=== PATIENT | male | born 1980 | race Two or more races ===

== ENCOUNTER 2025-08-08 19:42 | Inpatient (IN) | payer OTHER ==
[~2025-08-08] VITALS: Ht 180.3 cm; Wt 199.1 kg
[~2025-08-08 19:42] MED LIST: AMLO10TA80 PO; LOSA-412 PO
[2025-08-08] MEDS: SODIUM CHLORIDE 0.9% (SEPSIS BOLUS) IV ONE (21:09)
[2025-08-08] MEDS: PIPERACILLIN/TAZO 3.375G/50ML 50 ML IV ONE (21:34)
[2025-08-08 21:37] LABS: UREA NITROGEN BLOOD 41 mg/dL (9-23)
[2025-08-08 21:38] LABS: PROTEIN TOTAL 7.4 g/dL (6.0-8.3)
[2025-08-08 21:39] LABS: ASPARTATE AMINOTRANSFERASE 99 IU/L (<34); BILIRUBIN DIRECT 0.4 mg/dL (<=3.0); BILIRUBIN TOTAL 0.9 mg/dL (0.1-1.0)
[2025-08-08 22:06] LABS: C REACTIVE PROTEIN HIGH SENS > 200.00 mg/l (<1.00); CREATININE 2.1 mg/dL (0.6-1.3)
[2025-08-08 22:13] LABS: TROPONIN I HIGH SENSITIVITY 91 ng/L (3.0-53)
[2025-08-08 22:15] LABS: HEMATOCRIT. 35.1 % (42.0-52.0); HEMOGLOBIN. 11.1 g/dL (14.0-18.0); MEAN PLATELET VOLUME 9.4 fl (7.4-10.4); PLATELET 204 x1000/uL (130-400); RED BLOOD CELL COUNT 4.51 mill/uL (4.7-6.1); RED CELL DISTRIBUTION WIDTH 17.8 % (11.6-14.6)
[2025-08-08 22:30] LABS: INR 1.5
[2025-08-08] MEDS: VANCOMYCIN 1G PREMIX 200 ML IV ONE (22:31)
[2025-08-08 22:37] LABS: BAND% 2.0 % (1.0-6.0); LYMPHOCYTES % MANUAL 15.0 % (20.0-50.0); MONOCYTES % MANUAL 8.0 % (2.0-8.0); NEUTROPHILS % MANUAL 75.0 % (45.0-75.0); PLATELET ESTIMATE NORMAL
[2025-08-08] MEDS: ONDANSETRON HCL 4MG/2ML INJ IV ONE (22:52)
[2025-08-08] MEDS: MORPHINE SULFATE 4 MG/ML INJ (FOR IV/IM USE) IV ONE (22:52)
[2025-08-08 23:32] LABS: CLARITY URINE TURBID (CLEAR); COLOR URINE DARK YELLOW (YELLOW); GLUCOSE URINE NEGATIVE (NEGATIVE); KETONES URINE NEGATIVE (NEGATIVE); LEUKOCYTE ESTERASE URINE 1+ (NEGATIVE); NITRITE URINE NEGATIVE (NEGATIVE); OCCULT BLOOD URINE 3+ (NEGATIVE); PH URINE 5.5 (4.5-8.0); PROTEIN URINE 3+ (NEGATIVE); SPECIFIC GRAVITY URINE 1.022 (1.005-1.030); UROBILINOGEN URINE 1.0 E.U./dL (0.2-1.0)
[2025-08-09] VITALS (11 sets, daily range): BP systolic 112–151; BP diastolic 59–87; PULSE 71–115; RESP 18–28; TEMP 36.3–36.9; O2SAT 90–100
[2025-08-09] MEDS ORDERED: ZOLPIDEM TARTRATE 5MG TABLET PO PRN
[2025-08-09] MEDS ORDERED: ONDANSETRON HCL 4MG/2ML INJ IV PRN
[2025-08-09 00:23] LABS: SQUAMOUS EPITHELIAL CELL URINE FEW /lpf (RARE/1+)
[2025-08-09 00:26] LABS: BACTERIA URINE 1+; RBC URINE 25-50 /hpf (0-2); WBC URINE 0-2 /hpf (0-2)
[2025-08-09] MEDS: ACETAMINOPHEN 325MG TABLET PO PRN (00:30)
[2025-08-09] MEDS: SODIUM CHLORIDE 0.9% 1,000 ML IV SCH (01:38)
[2025-08-09] MEDS: VANCOMYCIN 1G PREMIX 200 ML IV NR (01:39)
[2025-08-09] MEDS: PIPERACILLIN/TAZO 3.375G/50ML 50 ML IV SCH (06:02)
[2025-08-09] MEDS: MORPHINE SULFATE 2 MG/ML INJ (NOT FOR IM USE) IV PRN (06:29)
[2025-08-09 10:26] LABS: HEMATOCRIT. 35.8 % (42.0-52.0); HEMOGLOBIN. 11.6 g/dL (14.0-18.0); MEAN PLATELET VOLUME 9.3 fl (7.4-10.4); PLATELET 165 x1000/uL (130-400); RED BLOOD CELL COUNT 4.58 mill/uL (4.7-6.1); RED CELL DISTRIBUTION WIDTH 18.2 % (11.6-14.6)
[2025-08-09] MEDS: HYDRALAZINE 20MG/ML VIAL IV PRN (10:34)
[2025-08-09] MEDS: PANTOPRAZOLE SODIUM 40 MG/VIAL IV SCH (10:39)
[2025-08-09] MEDS: ENOXAPARIN 30MG/0.3ML SYR SUBCUT SCH (10:40)
[2025-08-09 10:44] LABS: CREATININE 2.3 mg/dL (0.6-1.3); UREA NITROGEN BLOOD 40 mg/dL (9-23)
[2025-08-09 10:46] LABS: PHOSPHORUS 3.4 mg/dL (2.5-4.9)
[2025-08-09 11:51] LABS: TROPONIN I HIGH SENSITIVITY 67 ng/L (3.0-53)
[2025-08-09 12:46] LABS: BG BASE EXCESS -1.6 mmol/L (-2.0-3.0); BG CARBOXYHEMOGLOBIN 0.4 % (0.5-1.5); BG DEOXYHEMOGLOBIN 0.4 % (0.0-5.0); BG FRACTION INSPIRED OXYGEN 100; BG HCO3 ACT 21.4 mmol/L (21.0-28.0); BG METHEMOGLOBIN 0.3 % (0.5-1.5); BG OXYGEN SATURATION 99.6 % (94.0-98.0); BG OXYHEMOGLOBIN 98.9 % (94.0-98.0); BG PCO2 30.4 mmHg (35.0-48.0); BG PH 7.465 (7.350-7.450); BG PO2 182.3 mmHg (83.0-108.0); BG SAMPLE SITE RIGHT RADIAL; BG TOTAL HEMOGLOBIN 11.3 g/dL (13.5-17.5); BG VENT MODE MASK - NRB
[2025-08-09] MEDS: METHYLPREDNISOLONE SOD SUCC 125MG/2ML (ACT-O-VIAL) IV NR (17:33)
[2025-08-09 19:37] LABS: COLOR URINE YELLOW (YELLOW); GLUCOSE URINE NEGATIVE (NEGATIVE); KETONES URINE NEGATIVE (NEGATIVE); LEUKOCYTE ESTERASE URINE TRACE (NEGATIVE); NITRITE URINE NEGATIVE (NEGATIVE); OCCULT BLOOD URINE 3+ (NEGATIVE); PH URINE 5.5 (4.5-8.0); PROTEIN URINE 2+ (NEGATIVE); SPECIFIC GRAVITY URINE 1.018 (1.005-1.030); UROBILINOGEN URINE 1.0 E.U./dL (0.2-1.0)
[2025-08-09 19:45] LABS: *AMPHETAMINES SCREEN URINE PRESUMPTIVE POSITIVE (NEGATIVE); *BARBITURATES SCREEN URINE NEGATIVE (NEGATIVE); *BENZODIAZEPINES SCREEN URINE NEGATIVE (NEGATIVE); *COCAINE SCREEN URINE NEGATIVE (NEGATIVE); CANNABINOID URINE SCREEN NEGATIVE (NEGATIVE); METHADONE URINE SCREEN NEGATIVE (NEGATIVE); OPIATES URINE SCREEN PRESUMPTIVE POSITIVE (NEGATIVE); PHENCYCLIDINE URINE SCREEN NEGATIVE (NEGATIVE)
[2025-08-09 19:46] LABS: ECSTASY MDMA SCREEN URINE NEGATIVE (NEGATIVE)
[2025-08-09 19:49] LABS: CLARITY URINE HAZY (CLEAR)
[2025-08-09 19:51] LABS: WBC URINE 0-2 /hpf (0-2)
[2025-08-09 19:52] LABS: BACTERIA URINE TRACE; MUCUS URINE TRACE /lpf (NONE/TRACE); RBC URINE 50-100 /hpf (0-2); SQUAMOUS EPITHELIAL CELL URINE 1+ /lpf (RARE/1+)
[2025-08-09 20:25] LABS: LYMPHOCYTES % MANUAL 2.0 % (20.0-50.0); MONOCYTES % MANUAL 2.0 % (2.0-8.0); NEUTROPHILS % MANUAL 96.0 % (45.0-75.0); PLATELET ESTIMATE NORMAL
[2025-08-09] MEDS: AMLODIPINE 5MG TABLET PO SCH (22:12)
[2025-08-09] MEDS: VANCOMYCIN 1.5GM/250ML IV SCH (22:12)
[2025-08-09] MEDS: IPRATROPIUM/ALBUTEROL 0.5-3(2.5)MG/3ML NEB HHN SCH (22:23)
[2025-08-09] MEDS: BUDESONIDE 0.5MG/2ML NEB HHN SCH (22:24)
[2025-08-10] VITALS (15 sets, daily range): BP systolic 103–154; BP diastolic 52–108; PULSE 86–94; RESP 20–29; TEMP 36.5–36.8; O2SAT 95–100
[2025-08-10] MEDS: COLLAGENASE 250UNIT/GM OINT 30GM TOP SCH (08:49)
[2025-08-10] MEDS: HYDROCODONE/ACETAMINOPHEN 5/325MG TABLET PO PRN (08:49)
[2025-08-11] VITALS (13 sets, daily range): BP systolic 127–168; BP diastolic 89–101; PULSE 78–98; RESP 16–29; TEMP 36.2–36.8; O2SAT 95–99
[2025-08-11 07:49] LABS: UREA NITROGEN BLOOD 43.0 mg/dL (9-23)
[2025-08-11 08:02] LABS: CREATININE 1.4 mg/dL (0.6-1.3)
[2025-08-11 08:04] LABS: HEMATOCRIT. 32.5 % (42.0-52.0); HEMOGLOBIN. 10.6 g/dL (14.0-18.0); MEAN PLATELET VOLUME 10.9 fl (7.4-10.4); PLATELET 197 x1000/uL (130-400); RED BLOOD CELL COUNT 4.19 mill/uL (4.7-6.1); RED CELL DISTRIBUTION WIDTH 18.2 % (11.6-14.6)
[2025-08-11 16:39] LABS: LYMPHOCYTES % MANUAL 5.0 % (20.0-50.0); MONOCYTES % MANUAL 8.0 % (2.0-8.0); NEUTROPHILS % MANUAL 87.0 % (45.0-75.0); PLATELET ESTIMATE NORMAL
[2025-08-11] MEDS: VANCOMYCIN 1G PREMIX 200 ML IV SCH (16:47)
[2025-08-12] VITALS (12 sets, daily range): BP systolic 131–176; BP diastolic 80–124; PULSE 85–105; RESP 14–35; TEMP 36.2–36.7; O2SAT 93–100
[2025-08-12] MEDS: CLONIDINE 0.1MG TABLET PO PRN (02:36)
[2025-08-12] MEDS: METOPROLOL SUCCINATE 50MG ER TABLET PO SCH (11:10)
[2025-08-12 21:27] LABS: HEMATOCRIT. 36.8 % (42.0-52.0); HEMOGLOBIN. 11.4 g/dL (14.0-18.0); MEAN PLATELET VOLUME 9.4 fl (7.4-10.4); PLATELET 267 x1000/uL (130-400); RED BLOOD CELL COUNT 4.66 mill/uL (4.7-6.1); RED CELL DISTRIBUTION WIDTH 18.7 % (11.6-14.6)
[2025-08-12 21:41] LABS: CREATININE 1.2 mg/dL (0.6-1.3)
[2025-08-12 21:42] LABS: UREA NITROGEN BLOOD 25 mg/dL (9-23)
[2025-08-12 22:11] LABS: BAND% 2.0 % (1.0-6.0); EOSINOPHILS % MANUAL 1.0 % (0.0-5.0); LYMPHOCYTES % MANUAL 11.0 % (20.0-50.0); MONOCYTES % MANUAL 15.0 % (2.0-8.0); NEUTROPHILS % MANUAL 71.0 % (45.0-75.0); PLATELET ESTIMATE NORMAL
[2025-08-13] VITALS (9 sets, daily range): BP systolic 136–171; BP diastolic 67–105; PULSE 76–102; RESP 18–24; TEMP 36.3–37.3; O2SAT 17–100
[2025-08-13 06:57] LABS: HEMATOCRIT. 35.1 % (42.0-52.0); HEMOGLOBIN. 11.0 g/dL (14.0-18.0); MEAN PLATELET VOLUME 9.7 fl (7.4-10.4); PLATELET 276 x1000/uL (130-400); RED BLOOD CELL COUNT 4.51 mill/uL (4.7-6.1); RED CELL DISTRIBUTION WIDTH 18.7 % (11.6-14.6)
[2025-08-13 07:06] LABS: CREATININE 1.1 mg/dL (0.6-1.3)
[2025-08-13 07:07] LABS: UREA NITROGEN BLOOD 21 mg/dL (9-23)
[2025-08-13] MEDS: EMPAGLIFLOZIN 10MG TABLET PO SCH (10:00)
[2025-08-13] MEDS: FAMOTIDINE 20MG/2ML VIAL IV SCH (10:33)
[2025-08-13] MEDS: LISINOPRIL 10MG TABLET PO SCH (11:54)
[2025-08-13] MEDS: FUROSEMIDE 40MG TABLET PO SCH (11:54)
[2025-08-13] MEDS ORDERED: NALOXONE HCL 0.4MG/ML VIAL IV PRN (12:30)
[2025-08-13] MEDS: VANCOMYCIN 1.5GM PMX (XELLIA) 300 ML IV SCH (13:08)
[2025-08-13] MEDS: ENOXAPARIN 40MG/0.4ML SYR SUBCUT SCH (17:37)
[2025-08-14] VITALS (8 sets, daily range): BP systolic 125–157; BP diastolic 67–85; PULSE 86–105; RESP 16–22; TEMP 36.3–37.2; O2SAT 94–98
[2025-08-14 07:35] LABS: HEMATOCRIT. 33.9 % (42.0-52.0); HEMOGLOBIN. 10.6 g/dL (14.0-18.0); MEAN PLATELET VOLUME 9.5 fl (7.4-10.4); PLATELET 230 x1000/uL (130-400); RED BLOOD CELL COUNT 4.28 mill/uL (4.7-6.1); RED CELL DISTRIBUTION WIDTH 18.7 % (11.6-14.6)
[2025-08-14 08:03] LABS: CREATININE 1.1 mg/dL (0.6-1.3); UREA NITROGEN BLOOD 22 mg/dL (9-23)
[2025-08-14] MEDS: VANCOMYCIN 1.5GM/250ML 250 ML IV SCH (10:29)
[2025-08-14 10:41] LABS: BAND% 17.0 % (1.0-6.0); EOSINOPHILS % MANUAL 1.0 % (0.0-5.0); LYMPHOCYTES % MANUAL 11.0 % (20.0-50.0); METAMYELOCYTES % 2.0 % (0-0); MONOCYTES % MANUAL 7.0 % (2.0-8.0); MYELOCYTES % 1.0 % (0-0); NEUTROPHILS % MANUAL 61.0 % (45.0-75.0); PLATELET ESTIMATE NORMAL
[2025-08-14 15:36] LABS: LYMPHOCYTES % MANUAL 15.0 % (20.0-50.0); MONOCYTES % MANUAL 14.0 % (2.0-8.0); NEUTROPHILS % MANUAL 71.0 % (45.0-75.0); NUCLEATED RED BLOOD CELLS 4 /100 WBC; PLATELET ESTIMATE NORMAL
[2025-08-14] MEDS: MAGNESIUM/ALUMINUM HYDROXIDE/SIMETHICONE 30ML UDC PO PRN (16:11)
[2025-08-14] MEDS: MORPHINE SULFATE 2 MG/ML INJ (NOT FOR IM USE) IV PRN (16:14)
[2025-08-15] VITALS: BP 143/76; PULSE 90; RESP 18; TEMP 36.4; O2SAT 94
[2025-08-15 04:00] VITALS: BP 130/104; PULSE 93; RESP 18; TEMP 36.6; O2SAT 94
[2025-08-15 08:00] VITALS: BP 118/68; PULSE 97; RESP 20; TEMP 36.7; O2SAT 99
[2025-08-15 12:00] VITALS: BP 127/71; PULSE 95; RESP 18; TEMP 36.6; O2SAT 95
[2025-08-15 16:00] VITALS: BP 132/78; PULSE 63; RESP 18; TEMP 36.6; O2SAT 95
[2025-08-15 20:00] VITALS: BP 163/97; PULSE 100; RESP 19; TEMP 36.4; O2SAT 94
[2025-08-15] MEDS: HYDROCODONE/ACETAMINOPHEN 5/325MG TABLET PO PRN (21:12)
[2025-08-16] VITALS: BP 154/96; PULSE 98; RESP 19; TEMP 36.5; O2SAT 95
[2025-08-16 04:00] VITALS: BP 156/88; PULSE 91; RESP 19; TEMP 36.4; O2SAT 95
[2025-08-16 08:00] VITALS: BP 163/87; PULSE 94; RESP 18; TEMP 36.7; O2SAT 98
[2025-08-16 12:00] VITALS: BP 131/80; PULSE 87; RESP 18; TEMP 36.3; O2SAT 95
[2025-08-16 13:27] LABS: HEMATOCRIT. 33.4 % (42.0-52.0); HEMOGLOBIN. 10.6 g/dL (14.0-18.0); MEAN PLATELET VOLUME 8.8 fl (7.4-10.4); PLATELET 274 x1000/uL (130-400); RED BLOOD CELL COUNT 4.26 mill/uL (4.7-6.1); RED CELL DISTRIBUTION WIDTH 19.3 % (11.6-14.6)
[2025-08-16 13:48] LABS: CREATININE 0.9 mg/dL (0.6-1.3)
[2025-08-16 13:49] LABS: UREA NITROGEN BLOOD 14 mg/dL (9-23)
[2025-08-16 16:00] VITALS: BP 147/87; PULSE 92; RESP 17; TEMP 36.5; O2SAT 95
[2025-08-16 16:50] LABS: BAND% 18.0 % (1.0-6.0); EOSINOPHILS % MANUAL 2.0 % (0.0-5.0); LYMPHOCYTES % MANUAL 13.0 % (20.0-50.0); METAMYELOCYTES % 2.0 % (0-0); MONOCYTES % MANUAL 14.0 % (2.0-8.0); MYELOCYTES % 2.0 % (0-0); NEUTROPHILS % MANUAL 49.0 % (45.0-75.0); PLATELET ESTIMATE NORMAL
[2025-08-16 20:00] VITALS: BP 164/86; PULSE 95; RESP 17; TEMP 37; O2SAT 95
[2025-08-17 00:45] VITALS: PULSE 79; RESP 16; TEMP 36.9; O2SAT 97
[2025-08-17 04:00] VITALS: BP 155/92; PULSE 85; RESP 18; TEMP 36.7; O2SAT 97
[2025-08-17 08:00] VITALS: BP 144/85; PULSE 80; RESP 17; TEMP 36.7; O2SAT 98
[2025-08-17] MEDS ORDERED: LOSA-412 PO (10:45)
[2025-08-17] MEDS ORDERED: AMLO10TA80 PO (10:45)
[2025-08-17] MEDS ORDERED: FURO-151 MT (10:45)
[2025-08-17] MEDS ORDERED: METO-385 PO (10:45)
[2025-08-17] MEDS ORDERED: EMPA10TA PO (10:45)
[2025-08-17 12:00] VITALS: BP 140/70; PULSE 75; RESP 18; TEMP 36.1; O2SAT 98
[2025-08-17 16:00] VITALS: BP 126/81; PULSE 87; RESP 18; TEMP 36.1; O2SAT 98
[2025-08-17 20:00] VITALS: BP 179/83; PULSE 89; RESP 17; TEMP 36.4; O2SAT 96
[2025-08-18] VITALS: BP 171/72; PULSE 89; RESP 19; TEMP 36.4; O2SAT 98
[2025-08-18 04:00] VITALS: BP 165/79; PULSE 69; RESP 18; TEMP 36.4; O2SAT 97
[2025-08-18 08:00] VITALS: BP 136/84; PULSE 66; RESP 19; TEMP 36.7; O2SAT 99
[2025-08-18 12:00] VITALS: BP 145/86; PULSE 67; RESP 17; TEMP 36.1; O2SAT 97
[2025-08-18 16:00] VITALS: BP 131/84; PULSE 66; RESP 16; TEMP 36.4; O2SAT 99
[2025-08-18 20:00] VITALS: BP 93/64; PULSE 113; RESP 17; TEMP 35.9; O2SAT 96
[2025-08-19] VITALS: BP_SYST 117; BP_DIAS 6; BP_DIAS 64; PULSE 70; RESP 18; TEMP 36.4; O2SAT 97
[2025-08-19 04:00] VITALS: BP_SYST 141; BP_DIAS 64; BP_DIAS 87; PULSE 84; RESP 19; TEMP 35.3; O2SAT 98
[2025-08-19 08:00] VITALS: BP 116/69; PULSE 89; RESP 16; TEMP 35.8; O2SAT 98
[2025-08-19] MEDS: METOPROLOL SUCCINATE 25MG ER TABLET PO SCH (10:08)
[2025-08-19] MEDS: LISINOPRIL 20MG TABLET PO SCH (10:08)
[2025-08-19 12:00] VITALS: BP 158/69; PULSE 68; RESP 19; TEMP 36.6; O2SAT 98
[2025-08-19] MEDS ORDERED: HYDRALAZINE 10 MG in SODIUM CHLORIDE 0.9% 49.5 ML IV PRN (15:45)
[2025-08-19 16:00] VITALS: BP 110/74; PULSE 88; RESP 19; TEMP 36.6; O2SAT 97
[2025-08-19 17:51] LABS: HEMATOCRIT. 32.6 % (42.0-52.0); HEMOGLOBIN. 10.4 g/dL (14.0-18.0); MEAN PLATELET VOLUME 9.3 fl (7.4-10.4); PLATELET 312 x1000/uL (130-400); RED BLOOD CELL COUNT 4.15 mill/uL (4.7-6.1); RED CELL DISTRIBUTION WIDTH 19.6 % (11.6-14.6)
[2025-08-19 18:10] LABS: BAND% 7.0 % (1.0-6.0); EOSINOPHILS % MANUAL 3.0 % (0.0-5.0); LYMPHOCYTES % MANUAL 16.0 % (20.0-50.0); METAMYELOCYTES % 3.0 % (0-0); MONOCYTES % MANUAL 11.0 % (2.0-8.0); MYELOCYTES % 3.0 % (0-0); NEUTROPHILS % MANUAL 57.0 % (45.0-75.0); PLATELET ESTIMATE NORMAL
[2025-08-19 20:00] VITALS: BP 107/66; PULSE 92; RESP 18; TEMP 36.4; O2SAT 98
[2025-08-20] VITALS (7 sets, daily range): BP systolic 126–142; BP diastolic 76–88; PULSE 72–97; RESP 17–20; TEMP 36.5–36.7; O2SAT 97–100
[2025-08-20] MEDS: MORPHINE SULFATE 2 MG/ML INJ (NOT FOR IM USE) IV PRN (02:04)
[2025-08-20] MEDS: NICOTINE 14MG PATCH TD SCH (02:05)
[2025-08-20 07:16] LABS: HEMATOCRIT. 32.4 % (42.0-52.0); HEMOGLOBIN. 10.4 g/dL (14.0-18.0); MEAN PLATELET VOLUME 9.3 fl (7.4-10.4); PLATELET 311 x1000/uL (130-400); RED BLOOD CELL COUNT 4.17 mill/uL (4.7-6.1); RED CELL DISTRIBUTION WIDTH 19.2 % (11.6-14.6)
[2025-08-20 11:33] LABS: BAND% 4.0 % (1.0-6.0); EOSINOPHILS % MANUAL 1.0 % (0.0-5.0); LYMPHOCYTES % MANUAL 20.0 % (20.0-50.0); METAMYELOCYTES % 1.0 % (0-0); MONOCYTES % MANUAL 11.0 % (2.0-8.0); MYELOCYTES % 4.0 % (0-0); NEUTROPHILS % MANUAL 59.0 % (45.0-75.0); PLATELET ESTIMATE NORMAL
[2025-08-21] VITALS: BP 111/69; PULSE 98; RESP 18; TEMP 36.5; O2SAT 98
[2025-08-21 04:00] VITALS: BP 124/80; PULSE 72; RESP 17; TEMP 36.4; O2SAT 98
[2025-08-21 08:00] VITALS: BP 122/75; PULSE 97; RESP 18; TEMP 36.4; O2SAT 96
[2025-08-21 12:00] VITALS: BP 131/84; PULSE 86; RESP 18; TEMP 36.4; O2SAT 97
[2025-08-21 16:00] VITALS: BP 125/80; PULSE 97; RESP 19; TEMP 36.4; O2SAT 99
[2025-08-21 18:11] LABS: BASOPHILS % 0.9 % (0.0-2.0); EOSINOPHILS % 2.1 % (0.0-5.0); HEMATOCRIT. 32.7 % (42.0-52.0); HEMOGLOBIN. 10.1 g/dL (14.0-18.0); LYMPHOCYTES % 28.2 % (20.0-50.0); MEAN PLATELET VOLUME 9.7 fl (7.4-10.4); MONOCYTES % 12.0 % (2.0-8.0); NEUTROPHILS % 56.8 % (40.0-76.0); PLATELET 295 x1000/uL (130-400); RED BLOOD CELL COUNT 4.13 mill/uL (4.7-6.1); RED CELL DISTRIBUTION WIDTH 19.3 % (11.6-14.6)
[2025-08-21 20:00] VITALS: BP 106/74; PULSE 86; RESP 18; TEMP 36.6; O2SAT 96
[2025-08-22] VITALS: BP 125/125; PULSE 82; RESP 18; TEMP 36.9; O2SAT 97
[2025-08-22 06:23] VITALS: BP 138/85; PULSE 81; RESP 20; TEMP 36.7; O2SAT 97
[2025-08-22 08:00] VITALS: BP 145/76; PULSE 89; RESP 18; TEMP 37.3; O2SAT 99
[2025-08-22 12:00] VITALS: BP 129/78; PULSE 80; RESP 20; TEMP 37; O2SAT 98
[2025-08-22 20:00] VITALS: BP 116/57; PULSE 92; RESP 18; TEMP 37; O2SAT 97
[2025-08-22] MEDS ORDERED: NALOXONE HCL 0.4MG/ML VIAL IV PRN (22:00)
[2025-08-22] MEDS: ZOLPIDEM TARTRATE 5MG TABLET PO PRN (22:50)
[2025-08-23] VITALS: BP 128/82; PULSE 90; RESP 20; TEMP 36.8; O2SAT 97
[2025-08-23 04:00] VITALS: BP 122/82; PULSE 87; RESP 20; TEMP 36.7; O2SAT 97
[2025-08-23 08:00] VITALS: BP 141/83; PULSE 89; RESP 20; TEMP 36.6; O2SAT 96
[2025-08-23] MEDS: HYDROCODONE/ACETAMINOPHEN 5/325MG TABLET PO PRN (09:31)
[2025-08-23 12:00] VITALS: BP 124/82; PULSE 83; RESP 18; TEMP 36.2; O2SAT 95
== END 2025-08-23 16:19 | disposition home or self-care (01) | DRG 720 ==
LOC: ER 19:42 → 5WST 08-09 00:11 → EDBEDREQDT 08-09 00:13 → EDBEDREQTM 08-09 00:13 → EDBEDREQ 08-09 00:13 → ENRESERV 08-09 00:20 → 5EST 08-09 17:06 → 5WST 08-12 22:59 → 8EST 08-19 05:00
PROVIDERS: ADMIT Internal Medicine; ATTEND Internal Medicine
DX: A41.9 Sepsis, unspecified organism (principal); J96.01 Acute respiratory failure with hypoxia; E87.20 Acidosis, unspecified; M62.82 Rhabdomyolysis; I83.028 Varicose veins of left lower extremity with ulcer other part of lower leg; D50.9 Iron deficiency anemia, unspecified; F17.200 Nicotine dependence, unspecified, uncomplicated; J18.9 Pneumonia, unspecified organism; L03.116 Cellulitis of left lower limb; L03.115 Cellulitis of right lower limb; N39.0 Urinary tract infection, site not specified; N17.9 Acute kidney failure, unspecified; B95.5 Unspecified streptococcus as the cause of diseases classified elsewhere; I10 Essential (primary) hypertension; E66.01 Morbid (severe) obesity due to excess calories; I73.9 Peripheral vascular disease, unspecified; R59.0 Localized enlarged lymph nodes; L85.9 Epidermal thickening, unspecified; R60.0 Localized edema; I49.3 Ventricular premature depolarization; S80.822A Blister (nonthermal), left lower leg, initial encounter; I87.2 Venous insufficiency (chronic) (peripheral); Z59.00 Homelessness unspecified; Z68.44 Body mass index [BMI] 60.0-69.9, adult; Z86.14 Personal history of Methicillin resistant Staphylococcus aureus infection; Z79.899 Other long term (current) drug therapy
CPT/HCPCS: 36415; 36600; 71045; 73590; 78580; 80048; 80076; 80202; 80305; 81003; 82375; 82550; 82805; 82962; 83605; 83735; 83880; 84100; 84145; 84443; 84484; 85025; 85379; 86141; 86850; 86900; 87070; 87077; 87186; 93005; 93306; 93923; 93970; 94070; 94640; 94664; 94760; 97162; 99291; A4606; A4615; A6449; J0360; J1308; J1650; J2270; J2405; J2470; J2543; J2919; J3373; J7030; J7626